=== PATIENT | male | born 1980 | race Caucasian/White ===

== ENCOUNTER 2021-06-06 19:53 | Emergency (ER) | payer SELFPAY ==
[~2021-06-06] VITALS: Ht 170.2 cm; Wt 82.0 kg
[2021-06-06 20:51] VITALS: BP 124/66
== END 2021-06-06 23:32 | disposition left against medical advice (07) ==
LOC: ER 19:53
DX: Z53.21 Procedure and treatment not carried out due to patient leaving prior to being seen by health care provider (principal)

== ENCOUNTER 2021-06-07 03:37 | Inpatient (IN) | payer SELFPAY ==
[~2021-06-07] VITALS: Ht 170.2 cm; Wt 79.4 kg
[2021-06-07 06:45] LABS: BG BASE EXCESS 0.4 mmol/L (-2.0-2.0); BG CARBOXYHEMOGLOBIN 0.3 % (0.5-1.5); BG DEOXYHEMOGLOBIN 6.9 % (0.0-5.0); BG FRACTION INSPIRED OXYGEN 21; BG HCO3 ACT 23.2 mmol/L (22.0-26.0); BG METHEMOGLOBIN 0.2 % (0.0-1.5); BG OXYGEN SATURATION 93.1 % (92.0-98.5); BG OXYHEMOGLOBIN 92.6 % (94.0-97.0); BG PCO2 32.1 mmHg (35.0-45.0); BG PH 7.476 (7.350-7.450); BG PO2 64.4 mmHg (75.0-100.0); BG SAMPLE SITE RIGHT RADIAL; BG TOTAL HEMOGLOBIN 14.8 g/dL (12.0-18.0); BG VENT MODE ROOM AIR
[2021-06-07] MEDS ORDERED: AZITHROMYCIN 500MG/250ML 250 ML IV ONE (08:45)
[2021-06-07] MEDS ORDERED: CEFTRIAXONE 1 G PREMIX 50 ML IV ONE (08:45)
[2021-06-07] MEDS ORDERED: DEXAMETHASONE 10 MG/ML VIAL IV ONE (08:45)
[2021-06-07 10:12] LABS: BASOPHILS % 0.2 % (0.0-2.0); HEMATOCRIT. 42.8 % (42.0-52.0); HEMOGLOBIN. 14.3 g/dL (14.0-18.0); LYMPHOCYTES % 22.9 % (20.0-50.0); MEAN CORPUSCULAR HEMOGLOBIN 30.7 pg (28.0-32.0); MEAN CORPUSCULAR VOLUME 91.8 fL (80.0-94.0); MEAN PLATELET VOLUME 8.4 fl (7.4-10.4); MONOCYTES % 5.9 % (2.0-8.0); PLATELET 168 x1000/uL (130-400); RED BLOOD CELL COUNT 4.66 mill/uL (4.7-6.1)
[2021-06-07 10:19] LABS: CHLORIDE 99 mEq/L (98-107)
[2021-06-07 11:15] VITALS: BP_SYST 114; BP_SYST 125; BP_DIAS 72
[2021-06-07 12:00] VITALS: BP 117/58
[2021-06-07] MEDS ORDERED: CEFTRIAXONE 1 G PREMIX 50 ML IV SCH (12:15)
[2021-06-07] MEDS ORDERED: ONDANSETRON HCL 4MG/2ML INJ IV PRN (12:15)
[2021-06-07] MEDS ORDERED: CLONIDINE 0.1MG TABLET PO PRN (12:15)
[2021-06-07] MEDS: ACETAMINOPHEN 325MG TABLET PO PRN (12:29)
[2021-06-07] MEDS: ENOXAPARIN 40MG/0.4ML SYR SUBCUT SCH (14:05)
[2021-06-07 16:00] VITALS: BP 120/63
[2021-06-07 20:00] VITALS: BP 120/68
[2021-06-08] VITALS: BP 118/60
[2021-06-08] MEDS: THROAT LOZENGES-BENZOCAINE/MENTH/CETYLPYRD CL LOZENGES MM PRN ×2 (03:07→19:47)
[2021-06-08 04:00] VITALS: BP 126/74
[2021-06-08 06:54] LABS: BASOPHILS % 0.1 % (0.0-2.0); HEMATOCRIT. 39.6 % (42.0-52.0); HEMOGLOBIN. 13.6 g/dL (14.0-18.0); LYMPHOCYTES % 19.8 % (20.0-50.0); MEAN CORPUSCULAR HEMOGLOBIN 31.1 pg (28.0-32.0); MEAN CORPUSCULAR VOLUME 90.5 fL (80.0-94.0); MEAN PLATELET VOLUME 8.3 fl (7.4-10.4); MONOCYTES % 9.4 % (2.0-8.0); NEUTROPHILS % 70.7 % (40.0-76.0); PLATELET 195 x1000/uL (130-400); RED BLOOD CELL COUNT 4.37 mill/uL (4.7-6.1); RED CELL DISTRIBUTION WIDTH 12.9 % (11.6-14.6)
[2021-06-08 07:03] LABS: CHLORIDE 101 mEq/L (98-107)
[2021-06-08 07:17] LABS: LDL CHOLESTEROL 52 mg/dL (5-100)
[2021-06-08 07:18] LABS: HDL CHOLESTEROL 35 mg/dL (40-59)
[2021-06-08 08:00] VITALS: BP 125/86
[2021-06-08] MEDS: CEFTRIAXONE 1,000 MG in DEXTROSE 5% WATER 50 ML IV SCH (08:42)
[2021-06-08] MEDS: AZITHROMYCIN 500 MG in DEXT 5% WATER 250 ML IV SCH (08:42)
[2021-06-08] MEDS: DEXAMETHASONE 10 MG/ML VIAL IV SCH (08:42)
[2021-06-08] MEDS: ACETAMINOPHEN 325MG TABLET PO PRN (09:07)
[2021-06-08 12:00] VITALS: BP 120/71
[2021-06-08] MEDS: ENOXAPARIN 40MG/0.4ML SYR SUBCUT SCH (15:10)
[2021-06-08 16:00] VITALS: BP 117/73
[2021-06-08 20:00] VITALS: BP 127/61
[2021-06-09] MEDS: THROAT LOZENGES-BENZOCAINE/MENTH/CETYLPYRD CL LOZENGES MM PRN ×2 (06:05→20:46)
[2021-06-09 08:00] VITALS: BP 126/72
[2021-06-09] MEDS: ACETAMINOPHEN 325MG TABLET PO PRN (09:17)
[2021-06-09] MEDS: AZITHROMYCIN 500 MG in DEXT 5% WATER 250 ML IV SCH (09:18)
[2021-06-09] MEDS: CEFTRIAXONE 1,000 MG in DEXTROSE 5% WATER 50 ML IV SCH (09:18)
[2021-06-09] MEDS: DEXAMETHASONE 10 MG/ML VIAL IV SCH (09:18)
[2021-06-09 12:00] VITALS: BP 115/67
[2021-06-09] MEDS: SODIUM CHLORIDE 0.9% 1,000 ML IV SCH ×2 (12:55→23:04)
[2021-06-09] MEDS: GUAIFENESIN 200MG/10ML SUGAR FREE UDC PO PRN ×2 (12:55→17:34)
[2021-06-09] MEDS: ENOXAPARIN 40MG/0.4ML SYR SUBCUT SCH (12:56)
[2021-06-09 16:00] VITALS: BP 120/63
[2021-06-09 20:00] VITALS: BP 117/67
[2021-06-09] MEDS: DIPHENHYDRAMINE 50MG/ML VIAL IV PRN (23:12)
[2021-06-10] VITALS: BP 140/72
[2021-06-10 04:00] VITALS: BP 132/70
[2021-06-10] MEDS: THROAT LOZENGES-BENZOCAINE/MENTH/CETYLPYRD CL LOZENGES MM PRN ×2 (05:49→09:44)
[2021-06-10 07:37] LABS: BASOPHILS % 0.1 % (0.0-2.0); HEMATOCRIT. 41.1 % (42.0-52.0); HEMOGLOBIN. 14.1 g/dL (14.0-18.0); LYMPHOCYTES % 10.6 % (20.0-50.0); MEAN CORPUSCULAR HEMOGLOBIN 31.5 pg (28.0-32.0); MEAN PLATELET VOLUME 8.4 fl (7.4-10.4); MONOCYTES % 6.5 % (2.0-8.0); NEUTROPHILS % 82.8 % (40.0-76.0); PLATELET 280 x1000/uL (130-400); RED BLOOD CELL COUNT 4.47 mill/uL (4.7-6.1)
[2021-06-10 07:53] LABS: CHLORIDE 106 mEq/L (98-107)
[2021-06-10 08:00] VITALS: BP 134/74
[2021-06-10] MEDS: GUAIFENESIN 200MG/10ML SUGAR FREE UDC PO PRN ×4 (08:51→21:41)
[2021-06-10] MEDS: DEXAMETHASONE 10 MG/ML VIAL IV SCH (08:51)
[2021-06-10] MEDS: CEFTRIAXONE 1,000 MG in DEXTROSE 5% WATER 50 ML IV SCH (08:53)
[2021-06-10] MEDS: AZITHROMYCIN 500 MG in DEXT 5% WATER 250 ML IV SCH (08:53)
[2021-06-10] MEDS: DIPHENHYDRAMINE 50MG/ML VIAL IV PRN ×2 (09:38→21:46)
[2021-06-10 12:00] VITALS: BP 114/63
[2021-06-10] MEDS: SODIUM CHLORIDE 0.9% 1,000 ML IV SCH (12:39)
[2021-06-10] MEDS: ASCORBIC ACID 500 MG TABLET PO SCH (12:54)
[2021-06-10] MEDS: ZINC SULFATE 220 MG ( 50 ) CAPSULE PO SCH (12:54)
[2021-06-10] MEDS: CHOLECALCIFEROL (D3) 1000 UNIT TABLET PO SCH (12:54)
[2021-06-10] MEDS: ENOXAPARIN 40MG/0.4ML SYR SUBCUT SCH (12:54)
[2021-06-10 16:00] VITALS: BP 139/79
[2021-06-10 20:00] VITALS: BP 130/76
[2021-06-11] VITALS: BP 99/71
[2021-06-11] MEDS: SODIUM CHLORIDE 0.9% 1,000 ML IV SCH ×2 (00:13→16:36)
[2021-06-11] MEDS: THROAT LOZENGES-BENZOCAINE/MENTH/CETYLPYRD CL LOZENGES MM PRN ×3 (00:14→20:53)
[2021-06-11] MEDS: GUAIFENESIN 200MG/10ML SUGAR FREE UDC PO PRN ×5 (01:28→20:53)
[2021-06-11 04:00] VITALS: BP 134/76
[2021-06-11 08:00] VITALS: BP 140/77
[2021-06-11] MEDS: CEFTRIAXONE 1,000 MG in DEXTROSE 5% WATER 50 ML IV SCH (08:44)
[2021-06-11] MEDS: AZITHROMYCIN 500 MG in DEXT 5% WATER 250 ML IV SCH (08:44)
[2021-06-11] MEDS: DEXAMETHASONE 10 MG/ML VIAL IV SCH (08:44)
[2021-06-11] MEDS: CHOLECALCIFEROL (D3) 1000 UNIT TABLET PO SCH (08:44)
[2021-06-11] MEDS: ZINC SULFATE 220 MG ( 50 ) CAPSULE PO SCH (08:45)
[2021-06-11] MEDS: ASCORBIC ACID 500 MG TABLET PO SCH (08:45)
[2021-06-11 12:00] VITALS: BP 136/66
[2021-06-11 12:12] LABS: BASOPHILS % 0.3 % (0.0-2.0); HEMATOCRIT. 42.7 % (42.0-52.0); HEMOGLOBIN. 14.1 g/dL (14.0-18.0); LYMPHOCYTES % 9.5 % (20.0-50.0); MEAN CORPUSCULAR HEMOGLOBIN 30.3 pg (28.0-32.0); MEAN CORPUSCULAR VOLUME 92.2 fL (80.0-94.0); MONOCYTES % 7.9 % (2.0-8.0); NEUTROPHILS % 82.3 % (40.0-76.0); PLATELET 392 x1000/uL (130-400); RED BLOOD CELL COUNT 4.63 mill/uL (4.7-6.1)
[2021-06-11 12:17] LABS: CHLORIDE 105 mEq/L (98-107)
[2021-06-11 16:00] VITALS: BP 126/68
[2021-06-11] MEDS: ENOXAPARIN 40MG/0.4ML SYR SUBCUT SCH (16:36)
[2021-06-11 20:00] VITALS: BP 124/70
[2021-06-11] MEDS: DIPHENHYDRAMINE 50MG/ML VIAL IV PRN (22:49)
[2021-06-12] VITALS: BP 124/79
[2021-06-12] MEDS: SODIUM CHLORIDE 0.9% 1,000 ML IV SCH ×2 (01:20→12:56)
[2021-06-12] MEDS: GUAIFENESIN 200MG/10ML SUGAR FREE UDC PO PRN ×3 (03:51→21:24)
[2021-06-12] MEDS: THROAT LOZENGES-BENZOCAINE/MENTH/CETYLPYRD CL LOZENGES MM PRN ×3 (03:51→21:25)
[2021-06-12 04:00] VITALS: BP 144/74
[2021-06-12 08:00] VITALS: BP 133/77
[2021-06-12] MEDS: ZINC SULFATE 220 MG ( 50 ) CAPSULE PO SCH ×2 (09:00→21:25)
[2021-06-12] MEDS: DEXAMETHASONE 10 MG/ML VIAL IV SCH (09:03)
[2021-06-12] MEDS: ASCORBIC ACID 500 MG TABLET PO SCH (09:03)
[2021-06-12] MEDS: CEFTRIAXONE 1,000 MG in DEXTROSE 5% WATER 50 ML IV SCH (09:03)
[2021-06-12] MEDS: ACETAMINOPHEN 325MG TABLET PO PRN ×2 (09:03→15:09)
[2021-06-12] MEDS: CHOLECALCIFEROL (D3) 1000 UNIT TABLET PO SCH (09:03)
[2021-06-12 12:00] VITALS: BP 129/69
[2021-06-12] MEDS: ENOXAPARIN 40MG/0.4ML SYR SUBCUT SCH (14:43)
[2021-06-12 16:00] VITALS: BP 114/70
[2021-06-12 20:00] VITALS: BP 126/78
[2021-06-12] MEDS: DIPHENHYDRAMINE 50MG/ML VIAL IV PRN (21:25)
[2021-06-13] VITALS: BP 102/72
[2021-06-13] MEDS: GUAIFENESIN 200MG/10ML SUGAR FREE UDC PO PRN ×2 (02:02→23:12)
[2021-06-13] MEDS: DIPHENHYDRAMINE 50MG/ML VIAL IV PRN (02:02)
[2021-06-13] MEDS: SODIUM CHLORIDE 0.9% 1,000 ML IV SCH ×2 (02:03→14:00)
[2021-06-13 04:00] VITALS: BP 121/79
[2021-06-13 08:00] VITALS: BP 134/75
[2021-06-13] MEDS: ASCORBIC ACID 500 MG TABLET PO SCH (08:12)
[2021-06-13] MEDS: CHOLECALCIFEROL (D3) 1000 UNIT TABLET PO SCH (08:12)
[2021-06-13] MEDS: DEXAMETHASONE 10 MG/ML VIAL IV SCH (08:12)
[2021-06-13] MEDS: ZINC SULFATE 220 MG ( 50 ) CAPSULE PO SCH (08:12)
[2021-06-13 12:00] VITALS: BP 126/68
[2021-06-13] MEDS: ENOXAPARIN 40MG/0.4ML SYR SUBCUT SCH (14:01)
[2021-06-13 16:00] VITALS: BP 127/65
[2021-06-13] MEDS: MULTIVITAMINS,THER W-MINERALS TABLET PO SCH (18:21)
[2021-06-13 20:00] VITALS: BP 124/65
[2021-06-14] VITALS (7 sets, daily range): BP systolic 107–139; BP diastolic 57–72
[2021-06-14] MEDS: LORAZEPAM 0.5MG TABLET PO PRN ×2 (02:49→23:18)
[2021-06-14] MEDS: SODIUM CHLORIDE 0.9% 1,000 ML IV SCH ×2 (02:50→16:18)
[2021-06-14] MEDS: DEXAMETHASONE 10 MG/ML VIAL IV SCH (09:23)
[2021-06-14] MEDS: ZINC SULFATE 220 MG ( 50 ) CAPSULE PO SCH (09:24)
[2021-06-14] MEDS: GUAIFENESIN 200MG/10ML SUGAR FREE UDC PO PRN ×3 (09:24→16:18)
[2021-06-14] MEDS: ASCORBIC ACID 500 MG TABLET PO SCH (09:24)
[2021-06-14] MEDS: DIPHENHYDRAMINE 50MG/ML VIAL IV PRN (09:24)
[2021-06-14] MEDS: CHOLECALCIFEROL (D3) 1000 UNIT TABLET PO SCH (09:24)
[2021-06-14] MEDS: MULTIVITAMINS,THER W-MINERALS TABLET PO SCH (09:24)
[2021-06-14] MEDS: ENOXAPARIN 40MG/0.4ML SYR SUBCUT SCH (15:04)
[2021-06-15] VITALS (7 sets, daily range): BP systolic 98–160; BP diastolic 59–86
[2021-06-15] MEDS: SODIUM CHLORIDE 0.9% 1,000 ML IV SCH ×2 (06:09→16:19)
[2021-06-15 08:25] LABS: BASOPHILS % 0.6 % (0.0-2.0); EOSINOPHILS % 0.8 % (0.0-5.0); HEMATOCRIT. 38.2 % (42.0-52.0); LYMPHOCYTES % 25.6 % (20.0-50.0); MEAN CORPUSCULAR HEMOGLOBIN 31.2 pg (28.0-32.0); MEAN CORPUSCULAR VOLUME 91.5 fL (80.0-94.0); MEAN PLATELET VOLUME 7.4 fl (7.4-10.4); PLATELET 555 x1000/uL (130-400); RED BLOOD CELL COUNT 4.17 mill/uL (4.7-6.1); RED CELL DISTRIBUTION WIDTH 12.6 % (11.6-14.6)
[2021-06-15] MEDS: MULTIVITAMINS,THER W-MINERALS TABLET PO SCH (08:26)
[2021-06-15] MEDS: CHOLECALCIFEROL (D3) 1000 UNIT TABLET PO SCH (08:26)
[2021-06-15] MEDS: ZINC SULFATE 220 MG ( 50 ) CAPSULE PO SCH (08:26)
[2021-06-15] MEDS: DEXAMETHASONE 10 MG/ML VIAL IV SCH (08:26)
[2021-06-15] MEDS: ASCORBIC ACID 500 MG TABLET PO SCH (08:27)
[2021-06-15 08:52] LABS: CHLORIDE 107 mEq/L (98-107)
[2021-06-15] MEDS: ENOXAPARIN 40MG/0.4ML SYR SUBCUT SCH (15:29)
[2021-06-15] MEDS: GUAIFENESIN 200MG/10ML SUGAR FREE UDC PO PRN (15:29)
[2021-06-16] VITALS: BP 122/70
[2021-06-16] MEDS: LORAZEPAM 0.5MG TABLET PO PRN (01:03)
[2021-06-16 04:00] VITALS: BP 128/74
[2021-06-16 08:00] VITALS: BP 123/67
[2021-06-16] MEDS: CHOLECALCIFEROL (D3) 1000 UNIT TABLET PO SCH (08:50)
[2021-06-16] MEDS: ZINC SULFATE 220 MG ( 50 ) CAPSULE PO SCH (08:50)
[2021-06-16] MEDS: MULTIVITAMINS,THER W-MINERALS TABLET PO SCH (08:50)
[2021-06-16] MEDS: DEXAMETHASONE 10 MG/ML VIAL IV SCH (08:50)
[2021-06-16] MEDS: ASCORBIC ACID 500 MG TABLET PO SCH (08:51)
[2021-06-16 12:00] VITALS: BP 122/72
[2021-06-16] MEDS: ENOXAPARIN 40MG/0.4ML SYR SUBCUT SCH (15:32)
[2021-06-16 16:00] VITALS: BP 112/60
[2021-06-16 17:36] VITALS: BP 112/60
== END 2021-06-16 20:55 | disposition home or self-care (01) | DRG 720 ==
LOC: ER 03:37 → 7WST 09:56 → EDBEDREQTM 10:00 → EDBEDREQ 10:00 → ENRESERV 10:19
PROVIDERS: ADMIT Internal Medicine; ATTEND Internal Medicine
DX: A41.89 Other specified sepsis (principal); J96.01 Acute respiratory failure with hypoxia; J12.82 Pneumonia due to coronavirus disease 2019; E44.1 Mild protein-calorie malnutrition; U07.1 COVID-19; F12.90 Cannabis use, unspecified, uncomplicated; R74.01 Elevation of levels of liver transaminase levels; E87.1 Hypo-osmolality and hyponatremia; Z68.27 Body mass index [BMI] 27.0-27.9, adult
CPT/HCPCS: 36415; 36600; 71045; 80048; 80053; 80061; 82375; 82728; 82805; 83615; 84145; 84443; 85025; 86140; 93005; 99291; J0456; J0696; J1100; J1200; J1650; J7030; J7060; U0003; U0005